=== PATIENT | male | born 2005 | race Caucasian/White ===

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

== ENCOUNTER 2024-03-23 15:35 | Emergency (ER) | payer OTHER ==
[~2024-03-23] VITALS: Ht 165.1 cm; Wt 63.5 kg
[~2024-03-23 15:35] MED LIST changes: +HYDR1TAB94 PO; +Kristalose20 GM PO; +Miralax17 GM PO; +SULTRIDS PO; +TAMS.4ER PO
[2024-03-23 15:38] VITALS: BP 144/72
[2024-03-23 16:38] LABS: Source, Urine Clean Catch
[2024-03-23 16:47] LABS: Appearance, Urine Cloudy (Clear); Bilirubin, Urine Neg (Neg); Blood, Urine 5+ (Neg); Glucose Qualitative, Urine Neg (Neg); Ketones, Urine 3+ (Neg); Leukocyte Esterase, Urine 3+ (Neg); Nitrite, Urine Neg (Neg); Protein, Urine 2+ (Neg); Urobilinogen, Urine NORM (Normal)
[2024-03-23 16:52] LABS: Color, Urine Pale Yellow (P-Yellow)
[2024-03-23 16:54] LABS: Bacteria Many /hpf; Red Blood Cells, Urine 25-50 /hpf (0-2); Squamous Epithelial Cells Rare /hpf (Few); White Blood Cells, Urine 25-50 /hpf (0-5)
[2024-03-23 16:55] LABS: Mucus Light (0-Heavy)
[2024-03-23 16:56] LABS: Calcium Oxalate Crystals Mod /hpf
[2024-03-23 17:00] LABS: Cholesterol Crystals Many /hpf
[2024-03-23] MEDS ORDERED: SULTRIDS PO (17:46)
[2024-03-23] MEDS ORDERED: AMOCLA875 PO (17:46)
== END 2024-03-23 17:52 | disposition home or self-care (01) ==
LOC: ER 15:35
PROVIDERS: Physician Assistant
DX: K04.7 Periapical abscess without sinus (principal); N39.0 Urinary tract infection, site not specified; Z88.0 Allergy status to penicillin
CPT/HCPCS: 81001; 87086; 99283